=== PATIENT | male | born 1950 ===

== ENCOUNTER 2019-03-04 08:43 | Outpatient (CLI) | payer OTHER ==
[~2019-03-04] VITALS: Ht 152.4 cm; Wt 92.1 kg
== END 2019-03-04 09:00 | disposition home or self-care (01) ==
LOC: OFIC 805 08:43
DX: H61.23 Impacted cerumen, bilateral (principal); H60.8X3 Other otitis externa, bilateral; H90.3 Sensorineural hearing loss, bilateral